=== PATIENT | female | born 2000 | race African-American/Black ===

== ENCOUNTER 2024-07-28 13:12 | Emergency (ER) | payer OTHER ==
[2024-07-28 13:39] VITALS: BP 113/80; PULSE 86; RESP 20; TEMP 98.4; BMI 19.8
[2024-07-28] MEDS ORDERED: ACETAMINOPHEN 500 MG TABLET (FP) ONE (14:17)
[2024-07-28] MEDS ORDERED: DEXAMETHASONE SOD PHOSPHATE 10 MG/1 ML VIAL ONE (14:17)
[2024-07-28] MEDS: ACETAMINOPHEN 500 MG TABLET (FP) PO ONE (14:22)
[2024-07-28] MEDS: ALBUTEROL SO4 2.5/IPRATROPIUM 0.5 INH SOL 3 ML VIAL.NEB. NEB SCH (14:22)
[2024-07-28] MEDS: DEXAMETHASONE SOD PHOSPHATE 10 MG/1 ML VIAL PO ONE (14:22)
[2024-07-28 14:24] LABS: THROAT:GRP A STREP NOT DETECTED (NOTDETECTED)
[2024-07-28] MEDS ORDERED: ALBUTEROL SO4 2.5/IPRATROPIUM 0.5 INH SOL 3 ML VIAL.NEB. NEB ONE (14:55)
== END 2024-07-28 15:34 | disposition home or self-care (01) ==
LOC: JERFT 13:12
PROC: 3E0F7GC Introduction of Other Therapeutic Substance into Respiratory Tract, Via Natural or Artificial Opening (ICD-10-PCS; principal; 2024-07-28)
DX: J45.901 Unspecified asthma with (acute) exacerbation (principal); R05.9 Cough, unspecified; M79.10 Myalgia, unspecified site; J06.9 Acute upper respiratory infection, unspecified; Z20.822 Contact with and (suspected) exposure to COVID-19
CPT/HCPCS: 0241U-QW; 87651; 99284-25; J1100